=== PATIENT | female | born 1990 | race Caucasian/White ===

== ENCOUNTER → 2016-05-22 | Outpatient (CLI) | payer OTHER ==
[2016-02-12 07:11] VITALS: BP 104/57
[~2016-05-22] MED LIST: IBUP-1060 PO; PREN1TAB58 PO
--- NOTE | 2016-05-22 17:31 | RAD ---
INDICATION: survey COMPARISON: 02/12/2016 FINDINGS: Focused ultrasound images were obtained through the uterus in order to obtain a survey. Cervix is closed, 4 cm. Vertex presentation at time of exam. Placenta is posterior. brain and spine is seen. Fluid in bladder. Three-vessel cord. kidneys are seen. Umbilical cord insertion is seen. heartbeat is 157. Fluid in stomach. extremities are seen. Amniotic fluid index 15.3 IMPRESSION: Intrauterine is identified with estimated gestational age of 25 weeks and 4 days with estimated due date of 08/31/2016. The estimated weight is 843 g which is on the 51st percentile. No definite anomaly is seen.
== END | disposition home or self-care (01) ==
LOC: US 14:38
PROVIDERS: ATTEND Obstetrics & Gynecology
DX: O09.92 Supervision of high risk pregnancy, unspecified, second trimester (principal); O26.842 Uterine size-date discrepancy, second trimester; Z3A.25 25 weeks gestation of pregnancy
CPT/HCPCS: 76805

== ENCOUNTER 2016-06-29 20:44 | Observation (INO) | payer OTHER ==
[2016-02-12 07:11] VITALS: BP 104/57
[2016-06-29 21:33] LABS: BILIRUBIN,URINE NEGATIVE (NEG); GLUCOSE,URINE NEGATIVE (NEG); NITRITE,URINE NEGATIVE (NEG); PROTEIN,URINE 30 mg/dL (NEG-TRACE)
[2016-06-29 21:37] LABS: BACTERIA,URINE FEW /HPF (0-FEW); RBC,URINE 0 /HPF (0-2); SQUAMOUS EPITHELIAL CELL,UR FEW /LPF
[2016-06-29 21:40] LABS: BARBITURATES NEG (NEG); BENZODIAZEPINES NEG (NEG); CANNABINOIDS NEG (NEG); COCAINE NEG (NEG); ETHANOL, URINE NEG (NEG); METHADONE NEG (NEG); OPIATES NEG (NEG); PHENCYCLIDINE NEG (NEG)
[2016-06-29] MEDS ORDERED: IV RINGERS,LACTATED 500ML 1,000 ML IV ONE (22:45)
[2016-06-30] MEDS ORDERED: BISACODYL 10 MG SUPP.RECT. PR ONE (00:30)
== END 2016-06-30 00:41 | disposition home or self-care (01) ==
LOC: 3 SO LND 20:44
PROVIDERS: ADMIT Obstetrics & Gynecology; ATTEND Obstetrics & Gynecology
DX: O26.893 Other specified pregnancy related conditions, third trimester (principal); R42 Dizziness and giddiness; R56.00 Simple febrile convulsions; K59.00 Constipation, unspecified; O99.89 Other specified diseases and conditions complicating pregnancy, childbirth and the puerperium; M54.9 Dorsalgia, unspecified; Z3A.30 30 weeks gestation of pregnancy
CPT/HCPCS: 81001; 82947; 87086; 96360; G0378; G0379; G0481; J7120

== ENCOUNTER 2017-01-18 01:36 | Emergency (ER) | payer OTHER ==
[~2017-01-18] VITALS: Ht 167.6 cm; Wt 65.8 kg
[2017-01-18] MEDS ORDERED: KETOROLAC 15 MG/ML VIAL. ONE (02:29)
[2017-01-18 02:30] LABS: BILIRUBIN,URINE NEGATIVE (NEG); GLUCOSE,URINE NEGATIVE (NEG); NITRITE,URINE NEGATIVE (NEG); PH,URINE 6.5; PROTEIN,URINE NEGATIVE (NEG-TRACE); UROBILINOGEN,URINE 0.2 mg/dL (0.2 mg/dL)
[2017-01-18] MEDS ORDERED: NAPROXEN 500 MG TABLET PO ONE (02:30)
[2017-01-18] MEDS ORDERED: IV NORMAL SALINE 1000ML BAG 1,000 ML IV SCH (02:30)
[2017-01-18 02:31] LABS: BASO % 0 % (0-3); EOS % 2 % (0-3); HEMATOCRIT 42.1 % (36.0-47.0); HEMOGLOBIN 14.1 g/dL (12.0-15.5); LYMPH # 2.1 x10^3/uL (1.0-4.8); LYMPH % 23 % (24-48); MEAN CORPUSCULAR HEMOGLOBIN 31 pg (25-35); MEAN CORPUSCULAR HGB CONC 34 g/dL (31-37); MEAN CORPUSCULAR VOLUME 93 fL (79-100); MONO % 7 % (0-9); NEUT % 68 % (31-73); PLATELET COUNT 293 x10^3/uL (140-400); RED BLOOD COUNT 4.52 x10^6/uL (3.50-5.40); RED CELL DISTRIBUTION WIDTH 13.7 % (11.5-14.5); WHITE BLOOD COUNT 9.3 x10^3/uL (4.0-11.0)
[2017-01-18] MEDS: ONDANSETRON PF 4 MG/2 ML VIAL. IV ONE ×2 (02:33→02:37)
--- NOTE | 2017-01-18 02:36 | ED.ADGEN ---
Past Medical History Past Medical History: Hepatitis, Other Additional Past Medical Histor: hep C Past Surgical History: Tonsillectomy Alcohol Use: None Drug Use: None Adult General Chief Complaint Chief Complaint: ABDOMINAL PAIN HPI HPI Patient is a 26 year old woman, history of hepatitis C, who presents to the emergency department with a complaint of nausea, vomiting, abdominal pain and diarrhea that began yesterday. Patient states that she's had multiple episodes of loose brown stool, and emesis, denies any blood or bile, states that she is experiencing abdominal cramping in the upper abdomen, associated with this nausea and vomiting. Patient denies any sick contacts or exposures, any recent travel or surgery, states that she did take "medication for nausea and diarrhea " at home, all she will not list the type medications she took her give exact time. Patient states that she is feeling hot and cold, denies similar symptoms previously, denies any injuries, denies any urinary complaints, any chest pain, shortness breath, any sore throat, rhinorrhea or other complaints. Review of Systems Review of Systems Constitutional: Denies fever or chills. [] Eyes: Denies change in visual acuity. [] HENT: Denies nasal congestion or sore throat. [] Respiratory: Denies cough or shortness of breath. [] Cardiovascular: Denies chest pain or edema. [] GI: Patient complaining of abdominal pain, nausea, vomiting, diarrhea. [] Denies bloody stools or bloody emesis. : Denies dysuria. [] Musculoskeletal: Denies back pain or joint pain. [] Integument: Denies rash. [] Neurologic: Denies headache, focal weakness or sensory changes. [] Endocrine: Denies polyuria or polydipsia. [] Lymphatic: Denies swollen glands. [] Psychiatric: Denies depression or anxiety. [] Current Medications Current Medications Current Medications Medications (Trade) Dose Ordered Sig/Luisa Start Time Stop Time Status Last Admin Dose Admin Info (Do NOT chart on this entry -- for MONITORING) 1 each PRN DAILY PRN 01/18/17 03:45 01/18/17 05:08 DC Iohexol (Omnipaque 300 Mg/ml) 75 ml 1X ONCE 01/18/17 04:00 01/18/17 04:01 DC 01/18/17 03:51 75 ML Ketorolac Tromethamine (Toradol) 10 mg 1X ONCE 01/18/17 02:45 01/18/17 02:46 DC 01/18/17 02:37 10 MG Naproxen (Naprosyn) 500 mg 1X ONCE 01/18/17 02:30 01/18/17 02:31 DC Ondansetron HCl (Zofran) 4 mg 1X ONCE 01/18/17 02:45 01/18/17 02:46 DC 01/18/17 02:37 4 MG Sodium Chloride 1,000 ml @ 1,000 mls/hr Q1H 01/18/17 02:30 01/18/17 03:29 DC 01/18/17 02:37 1,000 MLS/HR Allergies Allergies Allergies Coded Allergies Type Severity Reaction Last Updated Verified No Known Drug Allergies 07/22/15 No Physical Exam Physical Exam Constitutional: Well developed, well nourished, no acute distress, non-toxic appearance. [] HENT: Normocephalic, atraumatic, bilateral external ears normal, oropharynx moist, no oral exudates, nose normal. [] Eyes: PERRLA, EOMI, conjunctiva normal, no discharge. [] Neck: Normal range of motion, no tenderness, supple, no stridor. [] Cardiovascular:Heart rate regular rhythm, no murmur, S1, S2, rubs or gallops. [] Lungs & Thorax: Bilateral breath sounds clear to auscultation, no wheezing, rhonchi, rales. No chest or crepitus or tenderness. [] Abdomen: Bowel sounds normal, soft, tenderness to palpation in the epigastric and upper quadrant region, no rebound, rigidity, no guarding no masses, no pulsatile masses. [] Skin: Warm, dry, no erythema, no rash. [] Back: No tenderness, no CVA tenderness. [] Extremities: No tenderness, no cyanosis, no clubbing, ROM intact, no edema. Negative Homans sign. [] Neurologic: Alert and oriented X 3, normal motor function, normal sensory function, no focal deficits noted. [] Psychologic: Affect normal, judgement normal, mood normal. [] Current Patient Data Vital Signs Vital Signs Date Time Temp Pulse Resp B/P (MAP) Pulse Ox O2 Delivery O2 Flow Rate FiO2 01/18/17 04:45 64 16 116/66 (83) 100 Room Air 01/18/17 01:43 98.8 98.8 Lab Values Laboratory Tests Test 01/18/17 01:45 01/18/17 01:47 White Blood Count 9.3 x10^3/uL (4.0-11.0) Red Blood Count 4.52 x10^6/uL (3.50-5.40) Hemoglobin 14.1 g/dL (12.0-15.5) Hematocrit 42.1 % (36.0-47.0) Mean Corpuscular Volume 93 fL (79-100) Mean Corpuscular Hemoglobin 31 pg (25-35) Mean Corpuscular Hemoglobin Concent 34 g/dL (31-37) Red Cell Distribution Width 13.7 % (11.5-14.5) Platelet Count 293 x10^3/uL (140-400) Neutrophils (%) (Auto) 68 % (31-73) Lymphocytes (%) (Auto) 23 % (24-48) L Monocytes (%) (Auto) 7 % (0-9) Eosinophils (%) (Auto) 2 % (0-3) Basophils (%) (Auto) 0 % (0-3) Neutrophils # (Auto) 6.4 x10^3uL (1.8-7.7) Lymphocytes # (Auto) 2.1 x10^3/uL (1.0-4.8) Monocytes # (Auto) 0.6 x10^3/uL (0.0-1.1) Eosinophils # (Auto) 0.1 x10^3/uL (0.0-0.7) Basophils # (Auto) 0.0 x10^3/uL (0.0-0.2) Urine Collection Type Unknown Urine Color Yellow Urine Clarity Clear Urine pH 6.5 Urine Specific Hardin 1.025 Urine Protein Negative mg/dL (NEG-TRACE) Urine Glucose (UA) Negative mg/dL (NEG) Urine Ketones (Stick) Negative mg/dL (NEG) Urine Blood Negative (NEG) Urine Nitrite Negative (NEG) Urine Bilirubin Negative (NEG) Urine Urobilinogen Dipstick 0.2 mg/dL (0.2 mg/dL) Urine Leukocyte Esterase Negative (NEG) Urine RBC 0 /HPF (0-2) Urine WBC Occ /HPF (0-4) Urine Squamous Epithelial Cells Few /LPF Urine Bacteria Few /HPF (0-FEW) Urine Mucus Marked /LPF Sodium Level 138 mmol/L (136-145) Potassium Level 3.6 mmol/L (3.5-5.1) Chloride Level 101 mmol/L (98-107) Carbon Dioxide Level 30 mmol/L (21-32) Anion Gap 7 (6-14) Blood Urea Nitrogen 12 mg/dL (7-20) Creatinine 0.8 mg/dL (0.6-1.0) Estimated GFR (Cockcroft-Gault) 87.4 BUN/Creatinine Ratio 15 (6-20) Glucose Level 96 mg/dL (70-99) Calcium Level 9.0 mg/dL (8.5-10.1) Total Bilirubin 0.2 mg/dL (0.2-1.0) Aspartate Amino Transferase (AST) 41 U/L (15-37) H Alanine Aminotransferase (ALT) 79 U/L (14-59) H Alkaline Phosphatase 72 U/L (46-116) Total Protein 8.2 g/dL (6.4-8.2) Albumin 4.0 g/dL (3.4-5.0) Albumin/Globulin Ratio 1.0 (1.0-1.7) Lipase 137 U/L (73-393) Urine Opiates Screen Neg (NEG) Urine Methadone Screen Neg (NEG) Urine Barbiturates Neg (NEG) Urine Phencyclidine Screen Neg (NEG) Urine Amphetamine/Methamphetamine Pos (NEG) Urine Benzodiazepines Screen Neg (NEG) Urine Cocaine Screen Neg (NEG) Urine Cannabinoids Screen Neg (NEG) Urine Ethyl Alcohol Neg (NEG) POC Urine HCG, Qualitative Hcg negative (Negative) Laboratory Tests 01/18/17 01:45 Laboratory Tests 01/18/17 01:45 EKG EKG Not indicated.[] Radiology/Procedures Radiology/Procedures [][facility] [address] [place], [place] [id number] IMAGING REPORT Signed PATIENT: PARRISH EVANS ACCOUNT: [id number] : 1990 LOCATION: ER AGE: 26 SEX: F EXAM STATUS: REG ER ORD. PHYSICIAN: RAAD TIDWELL DO REASON: abd pain/n/v PROCEDURE: CT ABD PELV W/ IV CONTRST ONLY CT abdomen and pelvis with contrast HISTORY: Abdominal pain, nausea and vomiting. TECHNIQUE: Helical CT imaging of the abdomen and pelvis with 75 mL Omnipaque 300 intravenous contrast. Abdomen findings: Lung bases unremarkable. Kidneys, adrenal glands, pancreas, spleen, liver and gallbladder are unremarkable. There is prominent fluid distention of the mid to distal small bowel and throughout the colon. No transition point to suggest bowel obstruction. No inflammatory changes of the GI tract. Cecum is low-lying in the pelvis. A portion of the appendix can be visualized on axial images 57-65 extending superior from the cecum as well as on coronal image 12 and is normal. No abdominal fluid or adenopathy. Vessels are unremarkable. Lung bases unremarkable. Pelvis findings: 2 cm left ovarian oval hypodensity. Retroverted uterus. Fluid within the rectum. Right ovary, bladder and bones are unremarkable. No significant volume of pelvic fluid. No adenopathy. IMPRESSION: 1. Fluid distention of the mid to distal small bowel and throughout the colon, could be indicative of a low grade enterocolitis. No inflammatory changes of the bowel are evident however. 2. The appendix is negative. 3. 2 cm indeterminate hypodense lesion of the left ovary likely a dominant follicle or cyst in a patient of this age. This could be further characterized by pelvic sonography if there is clinical suspicion. Exposure: One or more of the following individualized dose reduction techniques were utilized for this examination: 1. Automated exposure control 2. Adjustment of the mA and/or kV according to patient size 3. Use of iterative reconstruction technique Electronically signed by: Remberto Bailey MD (01/18/2017 4:25 AM) [facility] [id number] DICTATED and SIGNED BY: REMBERTO BAILEY MD DATE: 01/18/17 0419 CC: RAAD TIDWELL DO; NO PCP ~ Course & Med Decision Making Course & Med Decision Making Pertinent Labs and Imaging studies reviewed. (See chart for details) Patient complaining of severe abdominal pain, nausea, vomiting, multiple doses diarrhea. Received antiemetics and pain medication the ED, IV fluids. Obstruction series obtained which reveals multiple dilated loops of bowel, obvious evidence obstruction. Reevaluation patient is still complaining stated pain, laboratory studies not reveal any acutely concerning findings, did proceed with CT of abdomen and pelvis for further elucidation of symptoms. CT is consistent with enterocolitis, no obstruction or other abnormalities identified. After receiving additional medication, and reevaluation, patient is resting comfortably at this time with no further vomiting or diarrhea in the ED. Mild elevations in LFTs noted, without any other concerning findings identified, no indication for antibiotics or other intervention as this time, is likely a viral illness discussed that this would be self resolving and treated with symptomatic management. Patient's urinalysis negative, UDS noted to be positive for methamphetamines. Did discuss findings with patient, will discharge with Bentyl, Zofran, clear liquid diet. Advance as tolerated, clear and detailed return instructions and precautions. Dragon Disclaimer Dragon Disclaimer This electronic medical record was generated, in whole or in part, using a voice recognition dictation system. Departure Impression: Primary Impression: Enterocolitis Disposition: 01 HOME, SELF-CARE Condition: IMPROVED Scripts Dicyclomine Hcl (BENTYL) 10 Mg Capsule 1 CAP PO PRN QID Y for ABDOMINAL CRAMPING, #12 CAP 1 Refill Prov: RAAD TIDWELL DO 01/18/17 Ondansetron Hcl (ZOFRAN) 4 Mg Tablet 4 MG PO PRN Q8HRS Y for NAUSEA/VOMITING, #12 TAB Prov: RAAD TIDWELL DO 01/18/17 RAAD TIDWELL DO Jan 18, 2017 02:35
[2017-01-18 02:39] LABS: BACTERIA,URINE FEW /HPF (0-FEW); BARBITURATES NEG (NEG); BENZODIAZEPINES NEG (NEG); CANNABINOIDS NEG (NEG); COCAINE NEG (NEG); METHADONE NEG (NEG); OPIATES NEG (NEG); PHENCYCLIDINE NEG (NEG); RBC,URINE 0 /HPF (0-2); SQUAMOUS EPITHELIAL CELL,UR FEW /LPF; WBC,URINE OCC /HPF (0-4)
[2017-01-18] MEDS ORDERED: KETOROLAC 15 MG/ML VIAL. IV ONE (02:45)
[2017-01-18] MEDS ORDERED: KETOROLAC 30 MG/ML INJ. IV ONE (02:45)
[2017-01-18 02:46] LABS: CREATININE 0.8 mg/dL (0.6-1.0); GFR 87.4; POTASSIUM 3.6 mmol/L (3.5-5.1)
[2017-01-18 02:52] LABS: TOTAL BILIRUBIN 0.2 mg/dL (0.2-1.0); TOTAL PROTEIN 8.2 g/dL (6.4-8.2)
[2017-01-18] MEDS ORDERED: CONTRAST GIVEN MC PRN (03:45)
[2017-01-18] MEDS ORDERED: IOHEXOL 300 MG/ML 75 ML VIAL IV ONE (04:00)
--- NOTE | 2017-01-18 04:29 | RAD ---
CT abdomen and pelvis with contrast HISTORY: Abdominal pain, nausea and vomiting. TECHNIQUE: Helical CT imaging of the abdomen and pelvis with 75 mL Omnipaque 300 intravenous contrast. Abdomen findings: Lung bases unremarkable. Kidneys, adrenal glands, pancreas, spleen, liver and gallbladder are unremarkable. There is prominent fluid distention of the mid to distal small bowel and throughout the colon. No transition point to suggest bowel obstruction. No inflammatory changes of the GI tract. Cecum is low-lying in the pelvis. A portion of the appendix can be visualized on axial images 57-65 extending superior from the cecum as well as on coronal image 12 and is normal. No abdominal fluid or adenopathy. Vessels are unremarkable. Lung bases unremarkable. Pelvis findings: 2 cm left ovarian oval hypodensity. Retroverted uterus. Fluid within the rectum. Right ovary, bladder and bones are unremarkable. No significant volume of pelvic fluid. No adenopathy. IMPRESSION: 1. Fluid distention of the mid to distal small bowel and throughout the colon, could be indicative of a low grade enterocolitis. No inflammatory changes of the bowel are evident however. 2. The appendix is negative. 3. 2 cm indeterminate hypodense lesion of the left ovary likely a dominant follicle or cyst in a patient of this age. This could be further characterized by pelvic sonography if there is clinical suspicion. Exposure: One or more of the following individualized dose reduction techniques were utilized for this examination: 1. Automated exposure control 2. Adjustment of the mA and/or kV according to patient size 3. Use of iterative reconstruction technique Electronically signed by: Ray Bailey MD (01/18/2017 4:25 AM) [id number]
[2017-01-18] MEDS ORDERED: ONDA4TAB7 PO (04:41)
[2017-01-18] MEDS ORDERED: DICY10CA53 PO (04:41)
[2017-01-18 04:45] VITALS: BP 116/66
--- NOTE | 2017-01-18 07:47 | RAD ---
Two-view abdominal series with portable AP upright chest x-ray History: Abdominal pain and nausea and vomiting and diarrhea Comparison: None available. Findings: There is mild diffuse air-filled dilatation of large and small bowel loops down into the rectosigmoid region consistent with enterocolitis. No obstructive bowel pattern or free air is seen. Chest x-ray demonstrates no acute lung infiltrate or pleural effusion or pulmonary edema or pneumothorax. The heart size and pulmonary vasculature and mediastinum and both jagdish are unremarkable. IMPRESSION: Findings are consistent with enterocolitis. No acute lung infiltrate.
== END 2017-01-18 04:50 | disposition home or self-care (01) ==
LOC: ER 01:36
DX: K52.9 Noninfective gastroenteritis and colitis, unspecified (principal); Z86.19 Personal history of other infectious and parasitic diseases
CPT/HCPCS: 36415; 74022; 74177; 80053; 80307; 81001; 81025; 83690; 85025; 96361; 96374; 96375; 99285; J1885; J2405; J7030; Q9967; G0479